=== PATIENT | female | born 1995 | race Caucasian/White ===

== ENCOUNTER 2017-07-23 17:22 | Emergency (ER) | payer BC ==
[2017-07-23 17:37] VITALS: TEMP 98.8
[2017-07-23] MEDS ORDERED: ONDANSETRON ODT 8 MG TAB SL ONE (17:43)
[2017-07-23] MEDS ORDERED: SODIUM CHLORIDE 0.9% 1000ML 1,000 ML IVS ONE (17:43)
[2017-07-23 18:28] VITALS: O2SAT 97
[2017-07-23] MEDS ORDERED: PROMETHAZINE HCL 25 MG TAB PO ONE (19:05)
--- NOTE | 2017-07-23 19:08 | ED.PDOC ---
History of Present Illness - General Chief Complaint: GI Problem Stated Complaint: Nausea, vomiting Time Seen by Provider: 07/23/17 17:39 Source: patient Exam Limitations: no limitations - History of Present Illness Initial Comments: The patient is a 22-year-old female presenting to the emergency room secondary to nausea and vomiting along with a low-grade fever for the last 2 days. Her fever broke earlier today. She has however been unable to keep any liquids or solids down. No diarrhea. No syncope. She does feel weak. She does feel dehydrated. She has not been feeling hungry. No abdominal pain. no Back pain. Her last menstrual period was last week. Severity: moderate Improving Factors: nothing Worsening Factors: nothing Associated Symptoms: loss of appetite, malaise, nausea/vomiting, weakness Allergies/Adverse Reactions: Allergies NO KNOWN ALLERGY Allergy (Verified 07/23/17 17:38) Home Medications: Ambulatory Orders Ondansetron [Zofran Odt] 4 mg PO Q4H PRN #10 tab 07/23/17 Review of Systems - Review of Systems Constitutional: States: fever, malaise, weakness EENTM: States: no symptoms reported Respiratory: States: no symptoms reported Cardiology: States: no symptoms reported Gastrointestinal/Abdominal: States: nausea, vomiting Genitourinary: States: no symptoms reported Musculoskeletal: States: other - mild body aches with the dehydration Skin: States: no symptoms reported Neurological: States: headache - mild headache with the dehydration Endocrine: States: no symptoms reported All other Systems: No Change from Baseline Past Medical History (General) - Patient Medical History Hx Seizures: No Hx Asthma: No Hx of COPD: No Hx Cardiac Disorders: No Hx Diabetes: No Hx Gastroesophageal Reflux: No Hx MRSA: No Surgical History: tonsillectomy - Vaccination History Hx Influenza Vaccination: No Hx Pneumococcal Vaccination: No - Social History Hx Tobacco Use: No - Female History Patient is a Female of Child Bearing Age (10 -59 yrs old): Yes Patient : No Family Medical History - Family History Mother Living Status: Still Living Hx Family Asthma: Yes Hx Family;Other: Maternal grandmother had leukemia and colon CA Physical Exam - Physical Exam General Appearance: Alert, No apparent distress, Other - the patient does look fatigued Eye Exam: bilateral normal Ears, Nose, Throat: hearing grossly normal, normal ENT inspection - ucous membranes are mildly dry, normal pharynx Neck: full range of motion, supple Respiratory: chest non-tender, lungs clear, normal breath sounds, no respiratory distress, no accessory muscle use Cardiovascular/Chest: normal peripheral pulses, regular rate, rhythm, no edema Peripheral Pulses: radial,right: 2+, radial,left: 2+, dorsalis pedis,right: 2+, dorsalis pedis,left: 2+ Gastrointestinal/Abdominal: non tender, soft Rectal Exam: deferred Back Exam: normal inspection, no CVA tenderness Extremity: normal range of motion, non-tender, normal inspection, no pedal edema , other - capillary refill was borderline at approximately 2 seconds 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 She is no longer febrile. She is not having any abdominal pain but she is significantly dehydrated. The patient received a liter of IV fluids and some antiemetics. She is feeling better and tolerating some solid intake. She'll be written for Zofran for as needed use. Her blood pressures are mildly low but I do suspect that this is a normal finding for her. I do recommend she follow-up with her primary care doctor next week for a follow-up evaluation. She tested negative for the flu. ER warnings were given for any worsening. Departure - Departure Clinical Impression: Gastroenteritis and colitis, viral Disposition: Discharge to Home or Self Care Condition: Fair Departure Forms: ED Discharge - Pt. Copy, Patient Portal Self Enrollment Instructions: DI for Viral Gastroenteritis -- Adult Diet: bland diet Activity: increase activity as tolerated Referrals: Chester Pollack MD [Primary Care Provider] - 1-5 Days Prescriptions: Ondansetron [Zofran Odt] 4 mg PO Q4H PRN #10 tab PRN Reason: Vomiting Home Medications: Ambulatory Orders Ondansetron [Zofran Odt] 4 mg PO Q4H PRN #10 tab 07/23/17 Additional Instructions: the patient is a 22-year-old female presenting to the emergency room with what appears to be nausea and vomiting from likely a viral gastroenteritis for the last 2 days. She is no longer febrile. She is not having any abdominal pain but she is significantly dehydrated. The patient received a liter of IV fluids and some antiemetics. She is feeling better and tolerating some solid intake. She'll be written for Zofran for as needed use. Her blood pressures are mildly low but I do suspect that this is a normal finding for her. I do recommend she follow-up with her primary care doctor next week for a follow-up evaluation. She tested negative for the flu. ER warnings were given for any worsening.
[2017-07-23 19:25] VITALS: BP 83/59
== END 2017-07-23 19:24 | disposition home or self-care (01) ==
LOC: ER 17:22
DX: A08.4 Viral intestinal infection, unspecified (principal)
CPT/HCPCS: 87502; J7030; Q0169

== ENCOUNTER 2019-05-21 15:11 | Emergency (ER) | payer BC, MEDICAID ==
[2019-05-21] MEDS ORDERED: PROCHLORPERAZINE INJ 10 MG/2 ML VIAL IV ONE (16:06)
[2019-05-21] MEDS ORDERED: LACTATED RINGERS 1,000 ML IVS ONE (16:06)
--- NOTE | 2019-05-21 16:40 | ED.PDOC ---
History of Present Illness - General Chief Complaint: Abdominal Pain Stated Complaint: Possible preg, nausea, cramping Time Seen by Provider: 05/21/19 16:05 Source: patient Exam Limitations: no limitations - History of Present Illness Initial Comments: Zachary Watts 23 y/o female [id number]. stated that she had been amenorrheic since August last year after she had Depo-Provera injectable contraceptives x 1.Stated planning to Join [employer] wants to get it confirmed after she had over the counter urine HCG test became positive.Has been feeling nauseated but DENIES ABDOMINAL PAINS;NO VOMITING. or NO VAGINAL BLEEDING. Timing/Duration: week - one Quality: other - NO ABDOMINAL PAINS Onset Location: other - NONE Radiation: none Activites at Onset: none Prior abdominal problems: none Sexual intercourse history: less than 2 months ago, single partner Improving Factors: nothing Worsening Factors: nothing Associated Symptoms: other - see hpi Allergies/Adverse Reactions: Allergies NO KNOWN ALLERGY Allergy (Verified 05/21/19 16:19) Review of Systems - Review of Systems Genitourinary: States: see HPI, other - missed periods All other Systems: Reviewed and Negative, No Change from Baseline Past Medical History (General) - Patient Medical History Hx Seizures: No Hx Asthma: No Hx of COPD: No Hx Cardiac Disorders: No Hx Diabetes: No Hx Gastroesophageal Reflux: No Hx Cancer: No Hx MRSA: No Surgical History: tonsillectomy - Vaccination History Hx Tetanus, Diphtheria Vaccination: No Hx Influenza Vaccination: No Hx Pneumococcal Vaccination: No - Social History Hx Tobacco Use: Yes Hx Alcohol Use: Yes Hx Substance Use: No Hx Substance Use Treatment: No Hx Depression: No - Female History Patient is a Female of Child Bearing Age (10 -59 yrs old): Yes Patient : Yes - positive at home test - Triage Comment ED Triage Comment: Pt is para 1 and 0, prior to this test. Family Medical History - Family History Mother Living Status: Still Living Hx Family Asthma: Yes Hx Family;Other: Maternal grandmother had leukemia and colon CA Physical Exam - Physical Exam General Appearance: Agitated, Comfortable, No apparent distress Eyes, Ears, Nose, Throat Exam: normal ENT inspection Neck: normal inspection Cardiovascular/Respiratory: regular rate, rhythm, normal peripheral pulses, normal breath sounds Gastrointestinal/Abdominal: non tender, soft, no organomegaly Back Exam: normal inspection, no CVA tenderness, no vertebral tenderness Extremity: no pedal edema, no calf tenderness Neurologic: alert, oriented x 3 Skin Exam: normal color, warm/dry Progress - Progress Progress: 05/21/19 16:42 Last Vital Signs Temp 98.7 F 05/21/19 15:30 Pulse 81 05/21/19 15:30 Resp 20 05/21/19 15:30 BP 98/60 05/21/19 15:30 Pulse Ox 98 05/21/19 15:30 - Results/Orders Results/Orders: Laboratory Results - last 24 hr 05/21/19 05/21/19 05/21/19 15:35 15:35 15:35 WBC 8.5 RBC 4.28 Hgb 13.7 Hct 39.1 MCV 91.3 MCH 32.1 H MCHC 35.1 RDW 12.5 Plt Count 178 MPV 9.7 Absolute Neuts (auto) 6.20 Absolute Lymphs (auto) 1.60 Absolute Monos (auto) 0.40 Absolute Eos (auto) 0.20 Absolute Basos (auto) 0.10 Neutrophils % 72.9 Lymphocytes % 19.0 L Monocytes % 5.1 Eosinophils % 2.3 Basophils % 0.7 Sodium 137 Potassium 3.9 Chloride 104 Carbon Dioxide 23 Anion Gap 13.9 BUN 12 Creatinine 0.65 BUN/Creatinine Ratio 18.5 Random Glucose 94 Serum Osmolality 273.3 L Calcium 9.7 Total Bilirubin 1.6 H AST 17 ALT 10 Alkaline Phosphatase 38 L Serum Total Protein 7.3 Albumin 4.4 Globulin 2.9 Albumin/Globulin Ratio 1.5 Lipase 24 Serum HCG, Qual Urine Color Urine Appearance Urine pH Ur Specific Fisher Urine Protein Urine Glucose (UA) Urine Ketones Urine Blood Urine Nitrite Urine Bilirubin Urine Urobilinogen Ur Leukocyte Esterase Urine RBC Urine WBC Ur Epithelial Cells Urine Bacteria 05/21/19 05/21/19 15:35 16:57 WBC RBC Hgb Hct MCV MCH MCHC RDW Plt Count MPV Absolute Neuts (auto) Absolute Lymphs (auto) Absolute Monos (auto) Absolute Eos (auto) Absolute Basos (auto) Neutrophils % Lymphocytes % Monocytes % Eosinophils % Basophils % Sodium Potassium Chloride Carbon Dioxide Anion Gap BUN Creatinine BUN/Creatinine Ratio Random Glucose Serum Osmolality Calcium Total Bilirubin AST ALT Alkaline Phosphatase Serum Total Protein Albumin Globulin Albumin/Globulin Ratio Lipase Serum HCG, Qual Positive Urine Color Yellow Urine Appearance Sl cloudy Urine pH 7.0 Ur Specific Fisher 1.010 Urine Protein Negative Urine Glucose (UA) Negative Urine Ketones Negative Urine Blood Negative Urine Nitrite Negative Urine Bilirubin Negative Urine Urobilinogen 0.2 Ur Leukocyte Esterase Negative Urine RBC 1-3 Urine WBC 0-1 Ur Epithelial Cells 5-10 Urine Bacteria Rare Discuss all test results with patient Departure - Departure Clinical Impression: Amenorrhea, secondary Qualifiers: Weeks of gestation: unspecified Qualified Code(s): Z34.90 - Encounter for supervision of normal , unspecified, unspecified trimester Time of Disposition: 17:21 Disposition: Discharge to Home or Self Care Condition: Fair Departure Forms: ED Discharge - Pt. 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
[2019-05-21 18:53] VITALS: BP 91/52; TEMP 98; O2SAT 99
== END 2019-05-21 18:05 | disposition home or self-care (01) ==
LOC: ER 15:11
DX: O99.89 Other specified diseases and conditions complicating pregnancy, childbirth and the puerperium (principal); R11.0 Nausea; Z87.891 Personal history of nicotine dependence; Z3A.00 Weeks of gestation of pregnancy not specified
CPT/HCPCS: 80053; 81001; 83690; 84703; 85025; J0780; J7120

== ENCOUNTER 2019-06-30 17:11 | Emergency (ER) | payer OTHER ==
[2019-06-30 17:27] VITALS: BP 98/53; TEMP 98.1; O2SAT 99
--- NOTE | 2019-06-30 17:38 | ED.PDOC ---
History of Present Illness - General Chief Complaint: ENT Problem Stated Complaint: Sore throat, R earache, headache Time Seen by Provider: 06/30/19 17:30 - History of Present Illness Initial Comments: 24 yo F PMH current has OBGYN for follow up presents to ED Boyfriend at bedside c/o facial pain and pressure sore throat and right ear pain x 3 days. Denies sick contacts denies vaginal bleeding or discharge denies fever chills nausea vomiting diarrhea chest pain sob diaphoresis. No change in diet rest bowel or bladder admits smoking denies drinking admits FH DM denies FH HTN no other c/o today. Allergies/Adverse Reactions: Allergies NO KNOWN ALLERGY Allergy (Verified 05/21/19 16:19) Home Medications: Ambulatory Orders Acetaminophen [Tylenol] 650 mg PO Q6H PRN #30 tab 06/30/19 Clindamycin HCl 300 mg PO Q6H 10 Days #80 cap 06/30/19 Review of Systems - Review of Systems Constitutional: States: see HPI EENTM: States: ear pain, nose congestion, throat pain Respiratory: States: see HPI Cardiology: States: see HPI Gastrointestinal/Abdominal: States: see HPI Genitourinary: States: see HPI Musculoskeletal: States: see HPI Skin: States: see HPI Neurological: States: no symptoms reported Endocrine: States: no symptoms reported Hematologic/Lymphatic: States: no symptoms reported All other Systems: Reviewed and Negative Past Medical History (General) - Patient Medical History Hx Seizures: No Hx Stroke: No Hx Asthma: No Hx of COPD: No Hx Cardiac Disorders: No Hx Congestive Heart Failure: No Hx Diabetes: No Hx Gastroesophageal Reflux: No Hx Cancer: No Hx MRSA: No Surgical History: no surgical history - Vaccination History Hx Tetanus, Diphtheria Vaccination: No Hx Influenza Vaccination: No Hx Pneumococcal Vaccination: No - Social History Hx Tobacco Use: Yes Hx Alcohol Use: No Hx Substance Use: No Hx Substance Use Treatment: No Hx Depression: No - Female History Patient is a Female of Child Bearing Age (10 -59 yrs old): Yes Patient : Yes - approx 9 weeks Family Medical History - Family History Mother Living Status: Still Living Hx Family Asthma: Yes Hx Family;Other: Maternal grandmother had leukemia and colon CA Physical Exam - Physical Exam General Appearance: No apparent distress Eye Exam: bilateral normal Ear Exam: bilateral ear: TM normal Nasal Exam: sinus tenderness Throat Exam: pharynx normal Neck: non-tender, full range of motion Cardiovascular/Respiratory: regular rate, rhythm Abdominal Exam: non-tender Neurologic: no motor/sensory deficits Skin Exam: normal color - bilateral tenderness over maxillary sinus Progress - Progress Progress: 06/30/19 17:41 A/P-Acute Sinusitis, Otalgia, URI, 1.tylenol upreg then d/c follow up pcp referral and OBGYN tylenol clindamycin Departure - Departure Clinical Impression: Otalgia of right ear Sinusitis Qualifiers: Sinusitis location: maxillary Chronicity: acute Recurrence: not specified as recurrent Qualified Code(s): J01.00 - Acute maxillary sinusitis, unspecified URI (upper respiratory infection) Qualifiers: URI type: unspecified URI Qualified Code(s): J06.9 - Acute upper respiratory infection, unspecified Qualifiers: Weeks of gestation: 9 weeks Qualified Code(s): Z3A.09 - 9 weeks gestation of Time of Disposition: 17:44 Disposition: Discharge to Home or Self Care Departure Forms: ED Discharge - Pt. Copy, Patient Portal Self Enrollment Instructions: DI for Ear Pain-Adult, Sinusitis, Adult (DC), How to Adapt to Physical Changes During Referrals: Jluis Patton MD [Primary Care Provider] - 1-2 Weeks Prescriptions: Acetaminophen [Tylenol] 650 mg PO Q6H PRN #30 tab PRN Reason: Pain Clindamycin HCl 300 mg PO Q6H 10 Days #80 cap Home Medications: Ambulatory Orders Acetaminophen [Tylenol] 650 mg PO Q6H PRN #30 tab 06/30/19 Clindamycin HCl 300 mg PO Q6H 10 Days #80 cap 06/30/19
== END 2019-06-30 17:52 | disposition home or self-care (01) ==
LOC: ER 17:11
DX: O98.811 Other maternal infectious and parasitic diseases complicating pregnancy, first trimester (principal); J06.9 Acute upper respiratory infection, unspecified; J01.00 Acute maxillary sinusitis, unspecified; H92.01 Otalgia, right ear; O99.331 Smoking (tobacco) complicating pregnancy, first trimester; F17.200 Nicotine dependence, unspecified, uncomplicated; Z3A.09 9 weeks gestation of pregnancy